=== PATIENT | female | born 2000 ===

== ENCOUNTER 2021-07-15 15:25 | Outpatient (CLI) | payer OTHER ==
[2021-07-15 19:31] LABS: NEISSERIA GONORRHOEAE DNA NEGATIVE (NEGATIVE); TRICHOMONAS VAGINALIS DNA NEGATIVE (NEGATIVE)
[2021-07-15 19:44] LABS: CHLAMYDIA TRACHOMATIS DNA POSITIVE (NEGATIVE)
== END 2021-07-15 15:26 | disposition home or self-care (01) ==
LOC: LAB.R 15:25
PROVIDERS: ATTEND Registered Nurse
DX: A56.8 Sexually transmitted chlamydial infection of other sites (principal); Z11.3 Encounter for screening for infections with a predominantly sexual mode of transmission
CPT/HCPCS: 87491; 87591; 87661